=== PATIENT | male | born 1985 | race Caucasian/White ===

== ENCOUNTER 2021-12-30 09:17 | Emergency (ER) | payer BC, OTHER ==
[~2021-12-30] VITALS: Ht 175.3 cm; Wt 127.0 kg
--- NOTE | 2021-12-30 10:00 | NUR ---
Nathaniel eagle in [facility] - 12/30/21 at 1039 by DONN Patient discharged to home in stable condition. Written and verbal after care instructions given. Patient verbalizes understanding of instruction.
[2021-12-30 10:19] VITALS: BP 144/93
--- NOTE | 2021-12-30 10:19 | NUR ---
CAME IN FOR BARB TOE NAIL SWELLING AND PAIN x 5 DAYS. ON PO ATB x 4DAYS
--- NOTE | 2021-12-30 10:39 | NUR ---
Patient discharged to home in stable condition. Written and verbal after care instructions given. Patient verbalizes understanding of instruction.
== END 2021-12-30 10:40 | disposition home or self-care (01) ==
LOC: ER 09:30
DX: L60.0 Ingrowing nail (principal)

== ENCOUNTER 2022-01-09 12:31 | Emergency (ER) | payer BC, OTHER ==
[~2022-01-09] VITALS: Ht 175.3 cm; Wt 127.0 kg
[2022-01-09 12:57] VITALS: BP 154/86
[2022-01-09] MEDS ORDERED: LIDOCAINE 1% INJ 50 ML MDV IJ ONE ×2 (15:27→15:55)
[2022-01-09] MEDS ORDERED: LIDOCAINE HCL/PF 1% 30 ML VIAL TP ONE (15:30)
[2022-01-09] MEDS ORDERED: LIDOCAINE HCL/PF 1% 30 ML SDV ONE (15:58)
--- NOTE | 2022-01-09 16:19 | NUR ---
CAT, HAND LAMINATOR, AT BEDSIDE
--- NOTE | 2022-01-09 18:10 | NUR ---
wound care done on right big toe
--- NOTE | 2022-01-09 18:19 | NUR ---
Patient discharged to home in stable condition. Written and verbal after care instructions given. Patient verbalizes understanding of instruction.
== END 2022-01-09 18:20 | disposition home or self-care (01) ==
LOC: ER 12:45
DX: L60.0 Ingrowing nail (principal)
CPT/HCPCS: 99284; 11730; J3490 ×3